=== PATIENT | male | born 1945 | race Caucasian/White ===

== ENCOUNTER → 2016-09-29 | Outpatient (CLI) | payer OTHER | LOC: MMPC 11:11 | PROVIDERS: ATTEND Surgery | DX: Z12.5 Encounter for screening for malignant neoplasm of prostate (principal); Z13.220 Encounter for screening for lipoid disorders; Z86.010 Personal history of colon polyps; Z87.19 Personal history of other diseases of the digestive system | CPT/HCPCS: 99202 ==

== ENCOUNTER 2016-10-10 09:28 | Day surgery (SDC) | payer OTHER, MEDICARE ==
[2016-10-10] MEDS ORDERED: LIDOCAINE W/ SODIUM BICARB 0.5 ML SYR ONE (09:48)
--- NOTE | 2016-10-10 11:11 | GEN.OPNOTE ---
EGD / Colonoscopy Report Surgery Date: 10/10/16 Preoperative Diagnosis: History of H. pylori gastritis. Personal history of colon polyps. Weight loss. Early satiety. Postoperative Diagnosis: Same. Procedure: #1 esophagogastroduodenoscopy with biopsy. #2 complete colonoscopy. Surgeon: Kvng Guido MD Anesthesia Provider: Court Hart CRNA Anesthesia Type: MAC Indications: See preoperative diagnosis. EGD Findings: Esophagus: [Normal] GE Junction : [Normal. Small hiatal hernia.] Fundus : [Normal] Body : [Normal] Prepyloric : [Normal] Small Intestine : [Normal] A lubricated flexible upper endoscope was inserted and passed through the esophagus and stomach into the duodenum. The duodenum and duodenal bulb were unremarkable. Pyloric channel was patent. Entire gastric mucosa appeared normal. Antral biopsies were taken with his history of H. pylori. Hemostasis was assured. Air was aspirated. The scope was withdrawn into the distal esophagus. Biopsies were taken at the Z line. Hemostasis was assured. The scope was withdrawn through the remainder of a normal-appearing esophagus and brought through the hypopharynx under suction completing that portion of the procedure. Colonoscopy Findings: Prep : [Very good] Cecum : [Normal] Ascending : [Normal] Transverse : [Normal] Sigmoid : [Normal] Rectum : [Normal] Digital Rectal Exam : [Prostate moderately enlarged without nodularity. Hemorrhoidal tissue.] A lubricated flexible colonoscope was inserted and passed to the blind end of the cecum. The appendiceal orifice and ileocecal valve were clearly seen. Air was aspirated as the scope was withdrawn. The entire colonoscopy was normal without polyp, tumor, neoplastic mass, infectious or inflammatory process. The scope was withdrawn completing the procedure. Patient tolerated all aspects of the procedure well without complication. He was taken to outpatient surgery in stable condition. We will call the results the biopsies when available. Patient is seeing his primary care tomorrow for further evaluation. Consider a gallbladder ultrasound and/or a CT scan abdomen and pelvis for his unexplained weight loss
[2016-10-10 11:37] VITALS: RESP 13; TEMP 97.4
== END 2016-10-10 11:53 | disposition home or self-care (01) ==
LOC: SDSC 09:28
PROVIDERS: ATTEND Surgery
DX: Z86.010 Personal history of colon polyps (principal); R63.4 Abnormal weight loss; R68.81 Early satiety
CPT/HCPCS: 43239; 45378; J2704

== ENCOUNTER → 2016-10-11 | Outpatient (CLI) | payer OTHER ==
--- NOTE | 2016-10-11 17:10 | DI ---
CT CHEST SCAN WITHOUT IV CONTRAST, 10/11/2016 4:03 PM : Clinical History: Smoking history. Previous Exam: None at this facility. Scans are performed from the base of the neck to the lower lung bases without IV contrast. Sagittal a nd coronal images using non MIPS and MIPS technique are generated. The base of the neck and thoracic inlet are normal. There are no abnormal axillary, supraclavicular, mediastinal, or hilar nodes. The heart is normal. Calcifications are present in the proximal and midd le thirds of the LAD and almost the entire length of the right coronary artery up to the PDA. The asc ending aorta is ectatic and measures 35 mm in AP and transverse dimension. There are large bullae in the right upper lobe and smaller bullae are present in all remaining lobes indicating bullous emphyse ma. No acute infiltrate or effusion is present. Reggie A and Reggie B lines are present indicating ch ronic interstitial pulmonary fibrosis. There are multiple noncalcified nodules ranging in size betwee n 2-3 mm located in the right upper lobe and the left lower lobe. A followup CT scan of the chest wit hout IV contrast is recommended in 6-12 months to monitor these lesions. There is discoid atelectasis in the right middle lobe and there is a focus of increased density in the left upper lobe that is li near and consistent with postinflammatory. There is a 25 mm spherical lesion in the posterior aspect of the left lobe of the liver and it has a CT density of 10 Hounsfield units. This is consistent with a cyst filled with proteinaceous debris. Both adrenal glands and the visualized portions of the sple en and pancreas are normal. READIN. Centrilobular emphysema with bullae and chronic interstitial pulmonary fibrosis. 2. There are multiple 2-3 mm noncalcified nodules in the right upper lobe and the left upper lobe. N o true lung mass is identified. A followup CT scan of the chest without IV contrast is recommended in 6-12 months to monitor the small lesions. 3. Coronary artery disease with calcifications in the right coronary artery to the PDA and in the pr oximal and middle thirds of the LAD. 4. 25 mm low-density lesion in the left lobe of the liver consistent with a cyst containing proteina ceous debris.
--- NOTE | 2016-10-11 17:38 | PE ---
[facility] Interpretive Statements [id number]
== END ==
LOC: CT 15:51
PROVIDERS: ATTEND Internal Medicine
DX: J43.2 Centrilobular emphysema (principal); I25.10 Atherosclerotic heart disease of native coronary artery without angina pectoris; D75.89 Other specified diseases of blood and blood-forming organs; R63.4 Abnormal weight loss; F17.200 Nicotine dependence, unspecified, uncomplicated
CPT/HCPCS: 36415; 71250; 82607; 83921; 94060; 99205

== ENCOUNTER → 2016-10-17 | Outpatient (CLI) | payer OTHER ==
--- NOTE | 2016-10-17 13:11 | DI ---
US ABDOMEN LIMITED,10/17/2016 8:55 AM: Clinical History: Abnormal weight loss Previous Exam: None at this facility. Findings: Multiple grayscale and color Doppler sonographic images are obtained through the abdomen and demonstr ate a normal-appearing pancreas. The liver contains a 2.8 cm simple cyst. There is some sludge noted within the gallbladder without any posterior shadowing. The gallbladder wa ll measures 2 mm and a negative sonographic Vasquez's sign is obtained. The common bile duct measures 4 mm. ] The measures 8.6 cm in length without hydronephrosis nor nephrolithiasis. Visualized portions of the aorta are normal. Impression: 1. No acute intra-abdominal pathology. 2. 2.8 cm simple hepatic cyst.
--- NOTE | 2016-10-17 14:38 | DI ---
CT ABD W/CN AND PELVIS W/CN,10/17/2016 8:55 AM: Clinical History: 30 pound weight loss. Previous Exam: None at this facility. Findings: Multiple helically acquired CT images are obtained through the abdomen and pelvis following the intra venous administration of 80 cc of Isovue 300, and demonstrate clear lung bases. There is a 2.8 cm simple cyst involving the left lobe of the liver. The gallbladder is unremarkable. A few coronary artery calcifications are seen. The pancreas is unremarkable. The spleen, adrenals and kidneys are unremarkable. The appendix is normal. The urinary bladder. Skeletal structures are also unremarkable. There are bilateral L5 pars defects at the L5 level. Impression: 1. No acute intra-abdominal pathology. 2. Bilateral L5 pars defects.
== END ==
LOC: US 08:49
PROVIDERS: ATTEND Internal Medicine
DX: R63.4 Abnormal weight loss (principal); F17.200 Nicotine dependence, unspecified, uncomplicated
CPT/HCPCS: 74177; 76705

== ENCOUNTER → 2016-10-25 | Outpatient (CLI) | payer OTHER | LOC: MMPC 11:11 | PROVIDERS: ATTEND Internal Medicine | DX: D75.89 Other specified diseases of blood and blood-forming organs (principal); J43.9 Emphysema, unspecified; E53.9 Vitamin B deficiency, unspecified | CPT/HCPCS: 99214; G0463; J3420 ==

== ENCOUNTER → 2016-11-08 | Outpatient (CLI) | payer OTHER | LOC: MMPC 11:11 | PROVIDERS: ATTEND Internal Medicine | DX: D75.89 Other specified diseases of blood and blood-forming organs (principal) | CPT/HCPCS: G0463; J3420 ==

== ENCOUNTER → 2016-11-18 | Outpatient (CLI) | payer OTHER | LOC: MMPC 11:11 | PROVIDERS: ATTEND Internal Medicine | DX: D75.89 Other specified diseases of blood and blood-forming organs (principal) | CPT/HCPCS: G0463; J3420 ==

== ENCOUNTER → 2016-11-25 | Outpatient (CLI) | payer OTHER | LOC: MMPC 11:11 | PROVIDERS: ATTEND Internal Medicine | DX: E53.8 Deficiency of other specified B group vitamins (principal) | CPT/HCPCS: G0463; J3420 ==

== ENCOUNTER → 2016-12-30 | Outpatient (CLI) | payer OTHER | LOC: MMPC 11:11 | PROVIDERS: ATTEND Internal Medicine | DX: D75.89 Other specified diseases of blood and blood-forming organs (principal) | CPT/HCPCS: G0463; J3420 ==

== ENCOUNTER → 2017-01-05 | Outpatient (CLI) | payer OTHER | LOC: MMPC 11:11 | PROVIDERS: ATTEND Internal Medicine | DX: J43.9 Emphysema, unspecified (principal); D64.9 Anemia, unspecified; D75.89 Other specified diseases of blood and blood-forming organs; R91.8 Other nonspecific abnormal finding of lung field; M48.02 Spinal stenosis, cervical region | CPT/HCPCS: 99214; G0463 ==

== ENCOUNTER → 2017-01-24 | Outpatient (CLI) | payer OTHER ==
--- NOTE | 2017-01-24 20:40 | DI ---
MRI CERVICAL SPINE W/O CN,01/24/2017 10:38 AM: Clinical History: Cervical spinal stenosis. Previous Exam: None at this facility. Findings: Multiplanar MR images are obtained through the cervical spine without contrast. Bony alignment is anatomic. No fractures are seen. There is edema involving the spinal cord which filiberto cends normally otherwise. The posterior fossa is unremarkable. The prevertebral soft tissues are unremarkable. Individual intervertebral disc spaces: C2/C3: There is facet and uncovertebral joint osteophyte formation contributing to moderate right and mild left neural foraminal narrowing. C3/4: There is a broad-based disc bulge with some uncovertebral joint osteophytes and facet hypertrop hy contributing to moderate to severe central canal stenosis with moderate right and moderate to juanita re left neural foraminal narrowing. C4/5: There is disc desiccation, uncovertebral joint osteophyte formation and some fluid within the f acet joints contributing to moderate left and mild right neuroforaminal narrowing. There is severe ce ntral canal stenosis at this level with edema in the spinal cord. C5/6: There is disc desiccation and uncovertebral joint osteophytes with facet hypertrophy contributi ng to moderate central canal stenosis with mild left and moderate right neuroforaminal narrowing. C6/7: There is near complete loss of intervertebral disc height with uncovertebral joint and facet hy pertrophy contributing to mild central canal stenosis with moderate bilateral neuroforaminal narrowin g. C7/T1: There is disc desiccation, annular fissuring and a left paracentral broad-based disc component contributing to moderate central canal stenosis and mild right neuroforaminal stenosis. Impression: Severe central canal stenosis at C3/4 and C4/5 causing edema of the spinal cord consistent with early myelomalacia. Other degenerative changes and central canal and neuroforaminal narrowing as above.
== END ==
LOC: MRI 10:26
PROVIDERS: ATTEND Internal Medicine
DX: M48.02 Spinal stenosis, cervical region (principal); M50.121 Cervical disc disorder at C4-C5 level with radiculopathy; M50.122 Cervical disc disorder at C5-C6 level with radiculopathy; M50.123 Cervical disc disorder at C6-C7 level with radiculopathy
CPT/HCPCS: 72141

== ENCOUNTER → 2017-01-26 | Outpatient (CLI) | payer OTHER ==
--- NOTE | 2017-01-26 13:16 | DI ---
XR C-SPINE COMPLETE MIN 4VW,01/26/2017 12:56 PM: Clinical History: Osteoarthritis of the spine with radiculopathy. Previous Exam: None at this facility. Findings: AP, lateral, flexion and extension views of the cervical spine are obtained, and demonstrate grade 2 anterolisthesis of C4 on C5. This decreases in severity upon extension where there is only grade 1 an terolisthesis. Advanced degenerative facet arthropathy is noted. There is no evidence of atlantoaxial instability on flexion or extension. There is loss of intervertebral disc height at the C6/7 level with endplate os teophyte formation. The prevertebral soft tissues are unremarkable. Peripheral vascular calcification s are seen. The lung apices are clear. Impression: Grade 2 anterolisthesis of C4 on C5 which reduces on extension views.
== END ==
LOC: ORTHO 13:19
PROVIDERS: ATTEND Physician Assistant
DX: M47.22 Other spondylosis with radiculopathy, cervical region (principal)
CPT/HCPCS: 72050; 99204

== ENCOUNTER → 2017-02-08 | Outpatient (CLI) | payer OTHER ==
[2017-02-08 10:09] LABS: BILIRUBIN,URINE NEGATIVE (NEG); CLARITY,URINE CLEAR (CLEAR); COLOR,URINE YELLOW; GLUCOSE, URINE (UA) NEGATIVE (NEG); NITRATE,URINE NEGATIVE (NEG); OCCULT BLOOD,URINE NEGATIVE (NEG); PROTEIN,URINE NEGATIVE (NEG); UROBILINOGEN,URINE 0.2 mg/dL (0.2)
[2017-02-08 10:11] LABS: RBC,URINE 0 /hpf; SQUAMOUS EPITHELIAL CELL,UR RARE; URINE SAMPLE TYPE CLEAN CATCH URINE; WBC,URINE 0
[2017-02-08 10:18] LABS: BASOPHILS # (AUTO) 0.06 10*3/UL; BASOPHILS % (AUTO) 0.8 % (0-1); EOSINOPHILS # (AUTO) 0.14 10*3/UL; EOSINOPHILS % (AUTO) 1.9 % (0-8); HEMATOCRIT 46.4 % (42.0-52.0); HEMOGLOBIN 16.1 g/dL (14.0-18.0); LYMPHOCYTES # (AUTO) 1.96 10*3/uL; MEAN CORPUSCULAR HEMOGLOBIN 35.5 PG (27-31); MEAN CORPUSCULAR HGB CONC 34.7 g/dL (33-37); MEAN CORPUSCULAR VOLUME 102.2 FL (80-90); MEAN PLATELET VOLUME 9.8 FL (7.4-12.2); MONOCYTES # (AUTO) 0.59 10*3/UL (0.3-0.8); NEUTROPHILS % (AUTO) 62.6 % (50-80); RED BLOOD COUNT 4.54 10^6/uL (4.70-6.10)
--- NOTE | 2017-02-08 10:20 | EKG ---
[address] [address] Measurements Intervals [place] Rate: 53 P: 72 VA: 141 QRS: 87 QRSD: 93 T: 81 QT: 431 QTc: 414 Interpretive Statements SINUS BRADYCARDIA WITH FREQUENT VENTRICULAR PREMATURE COMPLEXES IN A BIGEMINAL PATTERN ABNORMAL RHYTHM ECG No previous ECG available for comparison Electronically Signed On 02-08-17 13:35:45 MDT by Ruslan Shrestha [id number]
[2017-02-08 10:22] LABS: PLATELET MORPHOLOGY COMMENT NORMAL MORPHOLOGY (NORM); RBC MORPHOLOGY COMMENT NORMAL MORPHOLOGY (NORM); WBC MORPHOLOGY COMMENT NORMAL MORPHOLOGY (NORM)
[2017-02-08 10:24] LABS: CALCIUM 9.9 mg/dL (8.7-10.7); SERUM ALBUMIN 4.3 g/dL (3.5-4.8)
--- NOTE | 2017-02-08 11:16 | DI ---
PA /LATERAL CHEST X-RAY, 02/08/2017 10:39 AM : Clinical History: Preoperative clearance. Smoker. Previous Exam: 02/28/2011, and a CT chest scan without IV contrast from 10/11/2016. There is no acute soft tissue or bony abnormality. The patient is quite asthenic. Heart size is gino l. There is no acute infiltrate or effusion. Bullae are present in the right upper lobe. There is an extensive and increased amount of Reggie A and B lines since the previous study indicating progressio n of interstitial pulmonary fibrosis. There is centrilobular emphysema with pulmonary dural hypertens ion. Mediastinal structures are otherwise normal. There are no pulmonary nodules. Readin. There is no acute infiltrate or effusion. 2. Centrilobular emphysema with bullae. There has been progression of chronic interstitial pulmonary fibrosis since the previous exam.
== END ==
LOC: LAB 09:43
PROVIDERS: ATTEND Internal Medicine
DX: M47.22 Other spondylosis with radiculopathy, cervical region (principal); M48.02 Spinal stenosis, cervical region; R63.4 Abnormal weight loss; J43.9 Emphysema, unspecified; D75.89 Other specified diseases of blood and blood-forming organs; D64.9 Anemia, unspecified; F17.209 Nicotine dependence, unspecified, with unspecified nicotine-induced disorders
CPT/HCPCS: 36415; 71020; 80053; 81001; 85025; 85610; 85730; 93005; 93010